=== PATIENT | female | born 1980 | race Caucasian/White ===

== ENCOUNTER 2020-06-01 20:00 | Emergency (ER) | payer OTHER ==
[~2020-06-01] VITALS: Ht 160 cm; Wt 77.1 kg
[~2020-06-01 20:00] MED LIST: ALBIPROI INH; CEPH500 PO; CODACE30 PO; DOXY100 PO; HYDACE5 PO; NAPR550 PO; PENVK500 PO; RXCODACET PO; RXHYDACE PO
[2020-06-01] MEDS ORDERED: KETO10 PO (21:13)
[2020-06-01] MEDS ORDERED: Cleocin HCl300 MG PO (21:13)
== END 2020-06-01 21:28 | disposition home or self-care (01) ==
LOC: ER 20:00
DX: K02.9 Dental caries, unspecified (principal); Z88.1 Allergy status to other antibiotic agents; Z87.891 Personal history of nicotine dependence
CPT/HCPCS: 99283

== ENCOUNTER → 2021-12-09 | Outpatient (CLI) | payer OTHER ==
[~2021-12-09] MED LIST changes: +Cleocin HCl150 MG PO; +Cleocin HCl300 MG PO; +KETO10 PO
[2021-12-10 16:08] LABS: HPV 16 Negative (Negative); HPV 18 Negative (Negative); HPV OTHER HR TYPES Negative (Negative)
== END | disposition home or self-care (01) ==
LOC: LAB SHORT 09:37 → LAB 09:37
PROVIDERS: Obstetrics & Gynecology
DX: D25.9 Leiomyoma of uterus, unspecified (principal)
CPT/HCPCS: 87624; G0123

== ENCOUNTER 2022-11-15 15:38 | Emergency (ER) | payer OTHER ==
[~2022-11-15] VITALS: Ht 157.5 cm; Wt 90.7 kg
[~2022-11-15 15:38] MED LIST changes: +ELIQUIS5 M2 PO
== END 2022-11-15 18:39 | disposition home or self-care (01) ==
LOC: ER 15:38
DX: R53.1 Weakness (principal); I26.99 Other pulmonary embolism without acute cor pulmonale; I82.402 Acute embolism and thrombosis of unspecified deep veins of left lower extremity; J45.909 Unspecified asthma, uncomplicated; F17.200 Nicotine dependence, unspecified, uncomplicated; Z88.1 Allergy status to other antibiotic agents; Z88.0 Allergy status to penicillin; Z79.01 Long term (current) use of anticoagulants
CPT/HCPCS: 99282; A9270

== ENCOUNTER 2024-01-31 00:07 | Inpatient (IN) | payer OTHER ==
[~2024-01-31] VITALS: Ht 157.5 cm; Wt 98.7 kg
[~2024-01-31 00:07] MED LIST changes: +Miralax17 GM PO; +ONDA4ODT SL
[2024-01-31 02:13] LABS: Albumin, Blood 3.1 g/dL (3.4-5.0); Albumin/Globulin Ratio 0.8 (0.8-1.8); Bilirubin, Total 0.2 mg/dL (0.1-1.0); Bun/Creatinine Ratio 15.2 (12.0-20.0); Calcium, Blood 8.6 mg/dL (8.5-10.1); Creatinine, Blood 0.53 mg/dL (0.40-1.00); Globulin, Blood 3.8 g/dL (2.2-4.0); Potassium, Blood 3.8 mmol/L (3.5-5.5); Total Protein, Blood 6.9 g/dL (6.4-8.2)
[2024-01-31 02:17] LABS: BASOPHILS ABSOLUTE AUTO 0.06 K/mm3 (0.00-0.23); BASOPHILS PERCENT AUTO 1 % (0-2); EOSINOPHILS ABSOLUTE AUTO 0.24 K/mm3 (0.00-0.68); EOSINOPHILS PERCENT AUTO 3 % (0-6); Hematocrit 27.2 % (33.0-51.0); Hemoglobin 7.5 g/dL (11.5-16.0); IMMATURE GRAN ABSOLUTE AUTO 0.04 K/mm3 (0.00-0.10); IMMATURE GRAN PERCENT AUTO 1 % (0-1); LYMPHOCYTES ABSOLUTE AUTO 2.51 K/mm3 (0.84-5.20); LYMPHOCYTES PERCENT AUTO 29 % (21-46); MONOCYTES ABSOLUTE AUTO 0.73 K/mm3 (0.16-1.47); MONOCYTES PERCENT AUTO 8 % (4-13); Mean Corpuscular HGB 18.2 pg (26.0-34.0); Mean Corpuscular HGB Conc 27.6 g/dL (31.5-36.5); Mean Corpuscular Volume 66 fL (80-100); Mean Platelet Volume 9.6 fL (9.1-12.4); NEUTROPHILS ABSOLUTE AUTO 5.06 K/mm3 (1.96-9.15); NEUTROPHILS PERCENT AUTO 59 % (41-73); Platelet Count 600 K/mm3 (150-400); RDW Coefficient Variation 26.3 % (11.7-14.2); RDW Standard Deviation 59.9 fL (35.1-46.3); Red Blood Cell Count 4.13 M/mm3 (3.80-5.20); White Blood Cell Count 8.64 K/mm3 (4.00-11.30)
[2024-01-31] MEDS ORDERED: Ondansetron HCl 2 MG / ML 2ML Vial IV PRN (04:25)
[2024-01-31] MEDS ORDERED: Heparin Sodium,Porcine/0.5 NS 500 ML IV SCH (04:45)
[2024-01-31 05:14] LABS: BASOPHILS ABSOLUTE AUTO 0.07 K/mm3 (0.00-0.23); BASOPHILS PERCENT AUTO 1 % (0-2); EOSINOPHILS ABSOLUTE AUTO 0.24 K/mm3 (0.00-0.68); EOSINOPHILS PERCENT AUTO 3 % (0-6); Hematocrit 24.9 % (33.0-51.0); IMMATURE GRAN ABSOLUTE AUTO 0.03 K/mm3 (0.00-0.10); IMMATURE GRAN PERCENT AUTO 0 % (0-1); LYMPHOCYTES PERCENT AUTO 36 % (21-46); MONOCYTES ABSOLUTE AUTO 0.67 K/mm3 (0.16-1.47); MONOCYTES PERCENT AUTO 8 % (4-13); Mean Corpuscular HGB 18.3 pg (26.0-34.0); Mean Corpuscular HGB Conc 28.1 g/dL (31.5-36.5); Mean Corpuscular Volume 65 fL (80-100); Mean Platelet Volume 9.3 fL (9.1-12.4); NEUTROPHILS ABSOLUTE AUTO 4.57 K/mm3 (1.96-9.15); NEUTROPHILS PERCENT AUTO 53 % (41-73); Platelet Count 618 K/mm3 (150-400); RDW Coefficient Variation 26.4 % (11.7-14.2); RDW Standard Deviation 60.2 fL (35.1-46.3); Red Blood Cell Count 3.82 M/mm3 (3.80-5.20); White Blood Cell Count 8.68 K/mm3 (4.00-11.30)
[2024-01-31 05:30] LABS: Anti-Xa UFH, PHA Monitoring <0.10 IU/mL; International Normalized Ratio 0.92; Prothrombin Time Results 9.9 Sec (9.7-11.5)
[2024-01-31 05:33] LABS: Albumin/Globulin Ratio 0.8 (0.8-1.8); Bilirubin, Total 0.2 mg/dL (0.1-1.0); Bun/Creatinine Ratio 13.2 (12.0-20.0); Calcium, Blood 8.7 mg/dL (8.5-10.1); Creatinine, Blood 0.53 mg/dL (0.40-1.00); Globulin, Blood 3.6 g/dL (2.2-4.0); Potassium, Blood 3.8 mmol/L (3.5-5.5); Total Protein, Blood 6.6 g/dL (6.4-8.2)
[2024-01-31] MEDS ORDERED: FentaNYL Citrate 50 MCG/ML 2 ML Injection IV PRN (06:30)
--- NOTE | 2024-01-31 06:33 | NUR ---
Shift Summary Pt admitted for bilateral DVT. Both of her lower extremities are swollen with some spotty redness around the ankles. Pedal pulses are strong, cap refill is good, pt does say her feet are slightly numb but she can feel soft touch on her toes. She was started on a heparin drip as ordered. She is independent in the room, AOx4. She has been having vaginal bleeding for weeks which continues on today. Her HgB in the ER was 7.5. MD aware of vaginal bleeding, gynocology consult has been ordered.
[2024-01-31] MEDS ORDERED: Iron Dextran 25 MG in NS 50 ML IV ONE (08:05)
[2024-01-31] MEDS ORDERED: Iron Dextran 975 MG in NS 250 ML IV ONE (10:00)
[2024-01-31] MEDS ORDERED: Dose Adjust by Pharmacy XX STA ×2 (12:16→17:58)
[2024-01-31] MEDS ORDERED: Polyethylene Glycol 3350 17 gm PO PRN (15:35)
[2024-01-31 16:56] VITALS: BP 125/71
[2024-01-31 17:36] LABS: BASOPHILS ABSOLUTE AUTO 0.06 K/mm3 (0.00-0.23); BASOPHILS PERCENT AUTO 1 % (0-2); EOSINOPHILS ABSOLUTE AUTO 0.25 K/mm3 (0.00-0.68); EOSINOPHILS PERCENT AUTO 3 % (0-6); Hematocrit 26.3 % (33.0-51.0); Hemoglobin 7.4 g/dL (11.5-16.0); IMMATURE GRAN ABSOLUTE AUTO 0.04 K/mm3 (0.00-0.10); IMMATURE GRAN PERCENT AUTO 0 % (0-1); LYMPHOCYTES ABSOLUTE AUTO 3.89 K/mm3 (0.84-5.20); LYMPHOCYTES PERCENT AUTO 40 % (21-46); MONOCYTES ABSOLUTE AUTO 0.81 K/mm3 (0.16-1.47); MONOCYTES PERCENT AUTO 8 % (4-13); Mean Corpuscular HGB 18.7 pg (26.0-34.0); Mean Corpuscular HGB Conc 28.1 g/dL (31.5-36.5); Mean Corpuscular Volume 66 fL (80-100); NEUTROPHILS ABSOLUTE AUTO 4.64 K/mm3 (1.96-9.15); NEUTROPHILS PERCENT AUTO 48 % (41-73); Platelet Count 573 K/mm3 (150-400); RDW Coefficient Variation 26.6 % (11.7-14.2); RDW Standard Deviation 61.7 fL (35.1-46.3); Red Blood Cell Count 3.96 M/mm3 (3.80-5.20); White Blood Cell Count 9.69 K/mm3 (4.00-11.30)
[2024-01-31 19:10] VITALS: BP 116/67
--- NOTE | 2024-01-31 19:47 | NUR ---
SHIFT SUMMARY PATIENT WITH INCREASING BLEEDING TOWARD END OF SHIFT, LAST 3 HOURS, DR HAMILTON AND MELANI MADE AWARE OF THE BAM RED BLOOD IN TOILET AND PAD DR POLO ORDERED ADDITIONA MEGACE AND ADDITIONAL CBC. SHE IS UP AD CONNOR IN ROOM INDEPENDET.. BED IN LOW POSITION, CALL ISMAEL CRUZ. FAMILY PRESENT INTERMITTENT.
[2024-01-31] MEDS ORDERED: Docusate Sodium/Senna 1 Tab PO SCH (21:00)
[2024-02-01 01:01] LABS: BASOPHILS ABSOLUTE AUTO 0.07 K/mm3 (0.00-0.23); BASOPHILS PERCENT AUTO 1 % (0-2); EOSINOPHILS ABSOLUTE AUTO 0.25 K/mm3 (0.00-0.68); EOSINOPHILS PERCENT AUTO 3 % (0-6); Hematocrit 26.2 % (33.0-51.0); Hemoglobin 7.4 g/dL (11.5-16.0); IMMATURE GRAN ABSOLUTE AUTO 0.02 K/mm3 (0.00-0.10); IMMATURE GRAN PERCENT AUTO 0 % (0-1); LYMPHOCYTES ABSOLUTE AUTO 3.64 K/mm3 (0.84-5.20); LYMPHOCYTES PERCENT AUTO 37 % (21-46); MONOCYTES ABSOLUTE AUTO 0.73 K/mm3 (0.16-1.47); MONOCYTES PERCENT AUTO 8 % (4-13); Mean Corpuscular HGB 18.7 pg (26.0-34.0); Mean Corpuscular HGB Conc 28.2 g/dL (31.5-36.5); Mean Corpuscular Volume 66 fL (80-100); Mean Platelet Volume 9.7 fL (9.1-12.4); NEUTROPHILS ABSOLUTE AUTO 5.06 K/mm3 (1.96-9.15); NEUTROPHILS PERCENT AUTO 52 % (41-73); Platelet Count 598 K/mm3 (150-400); RDW Coefficient Variation 26.2 % (11.7-14.2); RDW Standard Deviation 60.6 fL (35.1-46.3); Red Blood Cell Count 3.95 M/mm3 (3.80-5.20); White Blood Cell Count 9.77 K/mm3 (4.00-11.30)
[2024-02-01 01:25] LABS: Bun/Creatinine Ratio 14.2 (12.0-20.0); Calcium, Blood 8.8 mg/dL (8.5-10.1); Creatinine, Blood 0.49 mg/dL (0.40-1.00); Potassium, Blood 3.9 mmol/L (3.5-5.5)
[2024-02-01 03:04] VITALS: BP 121/75
--- NOTE | 2024-02-01 06:03 | NUR ---
SHIFT SUMMARY PT IS PLEASANT AND COOPERATIVE WITH CARE. PT HAS HEPARIN DRIP RUNNING AT 15/HR. PT IS ALERT AND ORIENTED AND HAS SLEPT THROUGH MUCH OF THE NIGHT. PT CONTINUES TO HAVE BLOOD CLOTS FROM HER VAGINA. PT ALSO HAS SOME SWELLING TO BLE. BED IN LOW POSITION, CALL LIGHT IS WITHIN HER REACH. WILL CONTINUE TO MONITOR.
--- NOTE | 2024-02-01 06:59 | NUR ---
ADDENDUM, PATIENT HEPARIN RESTARTED AND VERIFIED AT NEW DOSING DURING SHIFT REPORT AT 1905 WITH SHUBHAM LEMUS.
[2024-02-01 07:30] VITALS: BP 119/73
[2024-02-01 08:27] LABS: Hematocrit 26.8 % (33.0-51.0); Hemoglobin 7.4 g/dL (11.5-16.0); Mean Corpuscular HGB 18.4 pg (26.0-34.0); Mean Corpuscular HGB Conc 27.6 g/dL (31.5-36.5); Mean Corpuscular Volume 67 fL (80-100); Mean Platelet Volume 9.3 fL (9.1-12.4); Platelet Count 577 K/mm3 (150-400); RDW Coefficient Variation 26.3 % (11.7-14.2); RDW Standard Deviation 60.9 fL (35.1-46.3); Red Blood Cell Count 4.03 M/mm3 (3.80-5.20); White Blood Cell Count 9.24 K/mm3 (4.00-11.30)
[2024-02-01] MEDS ORDERED: Dose Adjust by Pharmacy XX STA (09:22)
[2024-02-01] MEDS ORDERED: Heparin Sodium 5000 Units/ML 1ML MDV IV ONE (09:25)
[2024-02-01] MEDS ORDERED: OxyCODONE HCL 5 MG TAB PO PRN (10:25)
[2024-02-01 14:48] VITALS: BP 136/76
--- NOTE | 2024-02-01 17:17 | NUR ---
SHIFT SUMMARY PATIENT WITH INCREASED BACK PAIN THIS AM. SCANT BLOOD IN PADS TODAY AND SMALL AMOUNT IN TOILET. PATIENT ENCOURAGED TO GET UP AND WALK IN ROOM TOLERATED AND INCREASE HER WATER AND ORAL FLUID INTAKE. SHE IS COOPERATIVE AND REPORTS BACK PAIN MUCH BETTER, SHE IS UP IN CHAIR THIS AFTERNOON. DR HAMILTON CAME BY THIS AFTERNOON AND SPOKE WITH PATIENT REGARDING PE VS DVT CURRENT VS HISTORY OF, DISCUSSED RISK AND BENEFIT OF DISCONTINUING HEPARIN DRIP AND PATIENT AGREABLE TO STOP HEPARIN DRIP AND CONTINUE MONTORING FOR OVERNIGHT. SHE IS AOX4 AND INDEPENDENT IN THE ROOM.
--- NOTE | 2024-02-01 17:21 | NUR ---
VERBAL ORDER ALSO RECIEVED FROM DR HAMILTON TO DISCONTINUE HEPARIN DRIP AND PHARMACY CONSULT FOR HEPARIN. CALL PLACED TO PHARMACY, ORDERS DISCONTINUED.
[2024-02-01 19:04] VITALS: BP 118/84
[2024-02-02 03:21] VITALS: BP 115/62
[2024-02-02 04:26] LABS: CARDIOLIPIN ANTIBODY IGG <10 GPL (<=14); CARDIOLIPIN ANTIBODY IGM <10 MPL (<=12)
--- NOTE | 2024-02-02 04:45 | NUR ---
0400: PATIENT MOVED VIA BED TO ROOM 331 DIRECTED BY POWERHOUSE ENGINEER. TOLERATED WELL, ALL BELONGINGS MOVED WITH PATIENT.
[2024-02-02 05:40] LABS: Hematocrit 28.1 % (33.0-51.0); Hemoglobin 7.8 g/dL (11.5-16.0); Mean Corpuscular HGB 18.5 pg (26.0-34.0); Mean Corpuscular HGB Conc 27.8 g/dL (31.5-36.5); Mean Corpuscular Volume 67 fL (80-100); Mean Platelet Volume 9.3 fL (9.1-12.4); Platelet Count 592 K/mm3 (150-400); RDW Coefficient Variation 26.7 % (11.7-14.2); RDW Standard Deviation 61.6 fL (35.1-46.3); Red Blood Cell Count 4.21 M/mm3 (3.80-5.20)
--- NOTE | 2024-02-02 05:56 | NUR ---
Patient alert and oriented x4, resting comfortably in bed. Per patient, vaginal bleeding significantly diminished since admission. Patient ambulatory independently in room, able to use restroom and make needs known; patient voices eagerness for discharge home today. AM labs drawn via powerglide to left upper arm, tolerated well.
[2024-02-02 06:13] LABS: HOMOCYSTEINE, TOTAL 8 umol/L (0-15)
[2024-02-02 07:35] VITALS: BP 115/76
[2024-02-02] MEDS ORDERED: MEGE40T PO (11:30)
[2024-02-02 12:51] LABS: PROTEIN C FUNCTIONAL 97 % (83-168)
--- NOTE | 2024-02-02 14:39 | NUR ---
DISCHARGE NOTE: DISCUSSED DISCHARGE/PLAN WITH PATIENT; SO QUESTIONS OR CONCERNS. SHE ALREADY HAS AN APPT WITH DR. AGUDELO ON 02/08/24. SHE WAS DRESSED AND BELONGINGS COLLECTED, SHE WAS WHEELED DOWN VIA WHEELCHAIR BY CLOSING SPECIALIST AND ACCOMPANIED BY HER . NO SIGNS OR SYMPTOMS OF DISTRESS DURING DISCHARGE.
[2024-02-02 14:51] LABS: B2GLYCOPROTEIN 1, IGG ANTIBODY <10 SGU (<=20); B2GLYCOPROTEIN 1, IGM ANTIBODY <10 SMU (<=20)
[2024-02-02 17:21] LABS: ANTITHROMBIN, ENZYM (ACTIVITY) 106 % (76-128)
[2024-02-02 18:23] LABS: ANTI-XA QUALITATIVE INTERP Not Performed (Not Present); ANTICOAG MEDICATION NEUTRALIZ Not Performed (Not Performed); DRVVT 1:1 MIX RATIO Not Performed (<=1.20); DRVVT CONFIRMATION RATIO Not Performed (<=1.20); DRVVT SCREEN RATIO 0.83 (<=1.20); HEXAGONAL PHOSPHOLIPID CONFIRM Not Performed s (<=7.9); NEUTRALIZED DRVVT SCREEN RATIO Not Performed (<=1.20); NEUTRALIZED PTT-LA RATIO Not Performed (<=1.20); PROTHROMBIN TIME (PT) 12.7 s (12.0-15.5); PTT-LA RATIO 1.01 (<=1.20); THROMBIN TIME (TT) Not Performed s (<=19.5)
[2024-02-03 17:20] LABS: PROTEIN S AG FREE 56 % (55-123)
[2024-02-03 23:05] LABS: APC RESISTANCE 3.91 (>=2.00); FACTOR V LEIDEN BY PCR Not Done; FACV REF SPECIMEN Not Done
== END 2024-02-02 14:05 | disposition home or self-care (01) | DRG 300 ==
LOC: ER 00:07 → MEDS 00:08
PROVIDERS: Emergency Medicine; Internal Medicine; ADMIT Internal Medicine
DX: I82.453 Acute embolism and thrombosis of peroneal vein, bilateral (principal); D68.9 Coagulation defect, unspecified; D50.9 Iron deficiency anemia, unspecified; N92.4 Excessive bleeding in the premenopausal period; J45.909 Unspecified asthma, uncomplicated; D75.839 Thrombocytosis, unspecified; Z98.51 Tubal ligation status; Z98.890 Other specified postprocedural states; F17.210 Nicotine dependence, cigarettes, uncomplicated; Z88.1 Allergy status to other antibiotic agents; Z88.0 Allergy status to penicillin; Z91.013 Allergy to seafood; Z79.01 Long term (current) use of anticoagulants; Z86.711 Personal history of pulmonary embolism
CPT/HCPCS: 36415; 71046; 76856; 80048; 80053; 82728; 83540; 83550; 83880; 85025; 85027; 85520; 85610; 85730; 93005; 93010; 93306; 93970; 96365; 96366; 96368; 96376; 99285-25; A9270; C1751; G0378; J1644; J1750; J7050